=== PATIENT | female | born 1965 | race Caucasian/White ===

== ENCOUNTER 2017-04-09 17:53 | Emergency (ER) | payer MEDICAID, OTHER ==
--- NOTE | 2017-04-09 18:01 | ED Physician Chart ---
Chief Complaint/HPI - Patient Information Date Seen:: 04/09/17 Time Seen:: 17:55 Chief Complaint:: Recurrent nausea and vomiting for 4 days. History of Present Illness:: Brought in by private auto for the above reason. Pt has had fever up to 102F yesterday. No abdominal pain. Vomitus consists gastric content. No hematemesis. No abdominal pain. Last BM earlier this afternoon, loose but nonbloody. No hematochezia or melena. No recent travel, antibiotic use, or ingestion of contaminated food or liquid. Her had same illness recently with viral gastroenteritis diagnosed, and he has recovered without antibiotic therapy. Allergies:: see Nurse Note. Historian:: Patient Family MD/PCP:: Dr. Valencia LMP:: Postmenopausal. Review:: Nurse's Note Reviewed Review of Systems - Review of Systems General/Constitutional: Fever, No chills, No weight loss, No edema, No loss of appetite Skin: No skin lesions, No rash, No bruising Head: No headache, No light-headedness Eyes: No loss of vision, No pain, No diplopia ENT: No earache, Nasal drainage (clear nasal discharge.), No sore throat, No tinnitus Neck: No neck pain, No swelling, No thyromegaly, No stiffness, No mass noted Cardio Vascular: No chest pain, No palpitations, No PND, No orthopnea, No edema Pulmonary: No SOB, Cough (occasonl dry cough.), No wheezing GI: Nausea, Vomiting, Diarrhea (Nonbloody loose stool earlier this afternoon.), No pain, No melena, No hematochezia, No constipation, No hematemesis G/U: No dysuria, No frequency, No hematuria Geophysicist: No vaginal discharge, No abnormal vaginal bleed Musculoskeletal: No back pain, Other (diffuse body ache.) Endocrine: No polyuria, No polydipsia Psychiatric: No prior psych history Hematopoietic: No bruising, No lymphadenopathy Allergic/Immuno: No urticaria, No angioedema Neurological: No syncope, No focal symptoms, No weakness, No paresthesia, No headache, No dizziness, No confusion Past Medical History - Past Medical History Past Medical History: Dyslipidemia Family History: Heart disease (father), HTN (father), Cancer (mother.) Social History: Non Smoker, No Alcohol, No Drug Use, , Other (lives with her ) Employment:: Nurse. Surgical History: Cholecystectomy (06/2016) Psychiatricy History: None Medication: Reviewed Family Medical History - Family Member Mother Ethnicity: Non- Living Status: Hx Family Cancer: Yes Hx Family Coronary Artery Disease: No Hx Family Congestive Heart Failure: No Hx Family Hypertension: No Hx Family Stroke: No Hx Family Diabetes: No Hx Family Seizures: No Hx Family Dementia: No Hx Family AIDS: No Hx Family HIV: No Hx Family COPD: No Hx Family Hepatitis: No Hx Family Psychiatric Problems: No Hx Family Tuberculosis: No Father Ethnicity: Non- Living Status: Hx Family Cancer: No Hx Family Coronary Artery Disease: Yes Hx Family Congestive Heart Failure: No Hx Family Hypertension: Yes Hx Family Stroke: No Hx Family Diabetes: No Hx Family Seizures: No Hx Family Dementia: No Hx Family AIDS: No Hx Family HIV: No Hx Family COPD: No Hx Family Hepatitis: No Hx Family Psychiatric Problems: No Hx Family Tuberculosis: No Other Medical History: Liver disease Physical Exam - Physical Examination General/Constitutional: Awake, Well-developed, well-nourished, Alert, No distress, GCS 15, Non-toxic appearing, Ambulatory Other Gen/Cons comments:: Breathes comfortably, speaks clearly, and interacts normally. Head: Atraumatic Eyes: Lids, conjuctiva normal, PERRL, EOMI Skin: Nl inspection, No rash, No skin lesions, No ecchymosis, No lymphadenopathy ENMT: External ears, nose nl, Nasal exam nl, Lips, teeth, gums nl, Oropharynx nl , Tonsils nl Other ENMT comments:: Mucous membrane is slightly dry. Neck: Nontender, Full ROM w/o pain, No JVD, No nuchal rigidity, No mass, No stridor Respiratory: Nl effort/Exclusion, Clear to Auscultation, No Wheeze/Rhonchi/Rales Other Cardio Vascular comments:: Regular rhythm with mild tachycardia. No m/g/r. GI: No tenderness/rebounding/guarding, No organomegaly, No hernia, Normal BS's, Nondistended, No mass/bruits, No McBurney tenderness Other GI comments:: Abdomen is soft. : No CVA tenderness Extremities: No tenderness or effusion Neuro/Psych: Alert/oriented (oriented x 3), Judgement/insight normal, Mood normal, No focal deficits Labs/Radiology/EKG Results - Lab Results Results: Laboratory Tests 04/09/17 04/09/17 04/09/17 18:13 18:13 18:13 WBC 8.2 RBC 5.22 H Hgb 15.9 H Hct 46.2 H MCV 88.4 MCH 30.4 MCHC Differential 34.4 RDW 12.7 Plt Count 208 MPV 8.0 Neutrophils % 76.0 Lymphocytes % 14.1 L Monocytes % 9.6 Eosinophils % 0.3 Basophils % 0.0 PT 9.9 INR 0.95 PTT (Actin FS) 23.6 L Sodium 135 L Potassium 3.1 L Chloride 97 L Carbon Dioxide 24.0 Anion Gap 17.1 H BUN 25 Creatinine 1.2 Est GFR ( Amer) > 60.0 Est GFR (Non-Af Amer) 49.8 BUN/Creatinine Ratio 20.8 Glucose 116 H Calcium 10.0 Total Bilirubin 0.7 AST 18 ALT 13 Alkaline Phosphatase 90 Total Protein 8.4 H Albumin 5.0 Globulin 3.4 Albumin/Globulin Ratio 1.5 ED Septic Shock - . Is Septic Shock (SBP<90, OR Lactate>4 mmol\L) present?: No Reassessment (Disposition) - Reassessment Reassessment:: 1855 Pt has been repeatedly evaluated. Pt feels much better after IV hydration. Her HR has been normalized to 83 with BP 127/76. Lab findings have been reviewed with pt. Management plan has been discussed. 1999 Pt continues to improve. Pt has been ambulatory without assistance without difficulty. No lightheadedness. Patient requests to go home now and does not want further observation/management in hospital. Aftercare instructions have been given. Her daughter Jovon will drive her home. Reassessment Condition:: Improved - Diagnosis Diagnosis:: Viral gastroenteritis, stable and improved. - Aftercare/Follow up Instructions Aftercare/Follow-Up Instructions:: Refer to Discharge Instructions Notes:: Bedrest today. Push oral fluid such as Gatorade, etc.. No solid food today. Nausea/vomiting/diarrhea instructions given. Advance diet as tolerated starting tomorrow. F/U with PCP Dr. Valencia in one day for recheck with repeat lab studies:CBC, CMP. Return to ER immediately if condition worsens or if any further questions/ problems. Medication Prescribed:: None - Patient Disposition Discharge/Transfer:: Home Time:: 20:05 Condition at Disposition:: Stable, Improved ED Discharge Plan - Patient Disposition Admit/Discharge/Transfer: PT DISCHARGED HOME Instructions: Viral Gastroenteritis, [facility] Additional Instructions: keep well hydrated. follow up with your regular doctor in the next 1-2 days if not feeling any better.
[2017-04-09] MEDS ORDERED: Sodium Chloride 0.9% 1,000 ML IV ONE ×2 (18:04→18:56)
[2017-04-09 18:20] LABS: % EOSINOPHILS 0.3 % (0.0-5.0); % LYMPHOCYTES 14.1 % (20.0-50.0); % MONOCYTES 9.6 % (2.0-10.0); HEMATOCRIT 46.2 % (35.0-45.0); HEMOGLOBIN 15.9 gm/dL (11.7-15.5); MEAN CELL VOLUME 88.4 fl (81-100); MEAN CORPUSCULAR HEMOGLOBIN 30.4 pg (27.0-31.0); MEAN CORPUSCULAR HGB CONC 34.4 pg (28.0-36.0); NEUTROPHILE ABSOLUTE 6.2 Th/cmm (1.8-8.0); PLATELET COUNT 208 Th/cmm (150-400); RED BLOOD COUNT 5.22 Mil/cmm (3.80-5.10); RED CELL DISTRIBUTION WIDTH 12.7 % (11.5-20.0); WHITE BLOOD COUNT 8.2 Th/cmm (4.8-10.8)
[2017-04-09 18:32] LABS: INR 0.95 (0.5-1.4); PROTHROMBIN TIME (TEST) 9.9 SECONDS (9.5-11.5)
[2017-04-09 18:41] LABS: ALB/GLOB RATIO 1.5 (1.0-1.8); ALKALINE PHOSPHATASE 90 U/L (34-104); ANION GAP 17.1 (7.0-16.0); BILIRUBIN,TOTAL 0.7 mg/dL (0.3-1.0); BUN - UREA NITROGEN 25 mg/dL (7-25); BUN/CREATININE RATIO 20.8; CHLORIDE 97 mEq/L (98-107); CREATININE - SERUM 1.2 mg/dL (0.6-1.2); GLUCOSE 116 mg/dL (70-105); POTASSIUM SERUM 3.1 mEq/L (3.5-5.1); SGOT 18 U/L (13-39); SGPT/ALT 13 U/L (7-52); SODIUM SERUM 135 mEq/L (136-145)
[2017-04-09] MEDS ORDERED: Potassium Chloride 20 mEq ER Tab PO ONE ×2 (18:57→19:02)
== END 2017-04-09 20:05 | disposition home or self-care (01) ==
LOC: ER 17:53
DX: A08.4 Viral intestinal infection, unspecified (principal); E78.5 Hyperlipidemia, unspecified
CPT/HCPCS: 99284; 96361; 96374; 36415; 85025; 85610; 80053; J2405; J7030; Z7502